=== PATIENT | male | born 1970 | race Caucasian/White ===

== ENCOUNTER 2025-03-14 18:59 | Emergency (ER) | payer OTHER, SELFPAY ==
[2025-03-14] VITALS (7 sets, daily range): BP systolic 130–158; BP diastolic 91–115
[2025-03-14 19:27] LABS: Hematocrit 44.5 % (39.0-52.0); Hemoglobin 14.7 g/dL (13.0-18.0); Mean Corp Hgb Conc. 33.0 g/dL (33.0-37.0); Mean Corpuscular Volume 86.6 fL (80.0-94.0); Nucleated Red Blood Cells % 0 % (-); Platelet Count 280 10^3/uL (130-400); Red Cell Dist. Width 12.0 % (11.5-14.5)
[2025-03-14 19:56] LABS: ALT (SGPT) 36 U/L (0-50); AST (SGOT) 33 U/L (17-59); Albumin 4.4 g/dl (3.5-5.0); Alkaline Phosphatase 113 U/L (38-126); Blood Urea Nitrogen 14 mg/dl (9-20); Calcium 9.7 mg/dl (8.4-10.2); Carbon Dioxide 31 mmol/L (22-30); Chloride 103 mmol/L (98-107); Glucose 132 mg/dl (70-99); Potassium 4.3 mmol/L (3.5-5.1); Sodium 138 mmol/L (135-145); Total Protein 6.9 g/dl (6.3-8.2); eGFR > 60.00
[2025-03-14 20:04] LABS: Troponin I 0.024 ng/ml
[2025-03-14 23:36] LABS: Troponin I 0.019 ng/ml
--- NOTE | 2025-03-14 23:40 | ED.GENMED ---
History of Present Illness
General
Chief Complaint: Blood Pressure Problem
Time Seen by Provider: 03/14/25 21:54
History of Present Illness
History of Present Illness:
55-year-old male with history of hypertension, no longer on treatment, presents to the emergency department for evaluation of intermittent episodes of dizziness that develop whenever he stands or moves his head rapidly over the past week. Went to
his primary care physician and was noted to have hypertension and a reportedly abnormal EKG thus was sent to the ED for further evaluation. Denies chest pain or shortness of breath. Denies any dizziness or vision changes at rest. Describes the
symptoms as near syncopal as opposed to vertiginous however has not had any complete syncopal events. No headache. 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
Review of Systems
Review of Systems
Allergies reviewed?: Yes
All Other Systems: ROS reviewed and negative except as documented in HPI and ROS
Phy Exam
Physical Exam
Physical Exam:
GEN: Well appearing, NAD, WDWN
HEENT: Oral mucosa moist, no scleral icterus, no nasal congestion
Cardiac: Regular rate
Lung: No respiratory distress, no tachypnea
MSK: No gross deformity or injuries
Skin: Good color, no pallor or jaundice, no rashes
Neuro: AO x3; CN II-XII grossly intact. BUE strength 5/5 in all hyatt, sensation intact and symmetric. BLE strength 5/5 in all hyatt, sensation intact and symmetric, no visible nystagmus
Psych: Calm, cooperative
Course
Orders/Labs/Results
Orders:
Orders
03/14/25 18:59
EKG [Electrocardiogram (*1)] Routine
Reason for Study: Chest Pain
03/14/25 19:00
EKG- Treatment ONCE
03/14/25 19:20
Complete Blood Count/With Diff Urgent
Comprehensive Metabolic Panel Urgent
Troponin I Urgent
03/14/25 22:13
CT Head & Neck Angio W/wo IV Urgent
Comment:
Reason For Exam: dizziness
03/14/25 23:02
Troponin I Urgent
Abnormal Lab Results
03/14/25
19:20
Carbon Dioxide 31 H mmol/L
(22-30)
Glucose 132 H mg/dl
(70-99)
03/14/25 19:20
03/14/25 19:20
Vital Signs
Initial and Last Documented VS:
Initial Vital Signs
Temp Pulse Resp BP Pulse Ox
97.8 F 80 18 158/100 100
03/14/25 19:10 03/14/25 19:10 03/14/25 19:10 03/14/25 19:10 03/14/25 19:10
Last Documented Vital Signs
Temp Pulse Resp BP Pulse Ox
97.8 F 68 24 144/102 96
03/14/25 19:10 03/14/25 23:56 03/14/25 23:56 03/14/25 23:56 03/14/25 23:56
MDM/Problems Addressed
MDM/Problems Addressed:
Patient has a normal neurologic exam and I am unable to provoke any dizziness with provocative maneuvers in the ED. He is not orthostatic. Imaging of the head and neck was obtained by angiography to assess for carotid or vertebral artery stenosis
that would be causing his positional symptoms and this was a reassuring study. In regards to his hypertension I do not see a urgent need for lowering, this may be situational and have recommended he discuss further medication therapy with his
primary care physician. Able to ambulate in the ED without instability
*Pulse Oximetry
SaO2: 99
Oxygen Mode of Delivery: Room air
Patient hypoxic: no
*Critical Care Note
Total Time (30-74mins, 75-104mins- exclusive of procedures): Not Applicable
ED Attending Note
-
Portions of this chart may have been created with voice recognition software.� Occasional wrong word or��sound alike� substitutions may have occurred due to the inherent limitations of voice recognition software.
Discharge Plan
Departure
Patient Disposition: Home (Routine Discharge)
Date of Disposition: 03/14/25
Time of Disposition: 23:40
Patient with high blood pressure during this ER visit?: No
Discharge Problem:
Dizziness
Instructions: Dizziness
Prescriptions:
New
meclizine 25 mg tablet
25 mg PO TID PRN (Reason: dizziness) Qty: 20 0RF
Referrals:
Asya Garduno CRNP [Family Provider, General]
Interventions
Interventions:
*Risk Screen - Suicide Last Done: 03/14/25 19:10
*General Assessment Last Done: 03/14/25 22:24
*Neglect/Abuse Screening Last Done: 03/14/25 19:10
*ED- Fall Risk Assessment Last Done: 03/14/25 22:24
*ED COVID-19 Vaccine History Last Done: 03/14/25 22:19
*ED Influenza Vaccine History Last Done: 03/14/25 22:19
*Nursing Disposition Last Done: 03/14/25 23:55
ED- Cardiac Assessment Last Done: 03/14/25 22:55
ED- Neurological Assessment Last Done: 03/14/25 22:55
ED- Pulmonary Assessment Last Done: 03/14/25 22:55
Discharge Date and Time
Discharge Date/Time: 03/14/25 23:55
Print Language: SINHALA
== END 2025-03-14 23:55 | disposition home or self-care (01) ==
LOC: EMR 18:59
PROVIDERS: Emergency Medicine; Physician Assistant; EMERGENCY PHYSICIAN Emergency Medicine; FAMILY PHYSICIAN Registered Nurse
DX: R42 Dizziness and giddiness (principal); I10 Essential (primary) hypertension
CPT/HCPCS: 99284; 70496; 70498; 80053; 84484; 85025; 93005; Q9967